=== PATIENT | male | born 1970 | race Caucasian/White ===

== ENCOUNTER 2018-11-19 18:19 | Emergency (ER) | payer MEDICARE, MEDICAID ==
[~2018-11-19] VITALS: Ht 182.9 cm; Wt 170.0 kg
[2018-11-19] MEDS ORDERED: LORAZEPAM 1MG TABLET PO ONE (20:00)
[2018-11-19] MEDS ORDERED: OLANZAPINE 5MG TABLET ODT PO ONE (20:00)
[2018-11-19 20:15] LABS: BASOPHILS % 0.5 % (0.0-2.0); EOSINOPHILS % 2.4 % (0.0-5.0); HEMOGLOBIN. 15.2 g/dL (14.0-18.0); LYMPHOCYTES % 23.3 % (20.0-50.0); MEAN CORPUSCULAR VOLUME 91.9 fL (80.0-94.0); MEAN PLATELET VOLUME 9.1 fl (7.4-10.4); MONOCYTES % 7.1 % (2.0-8.0); NEUTROPHILS % 66.7 % (40.0-76.0); PLATELET 172 x1000/uL (130-400); RED CELL DISTRIBUTION WIDTH 14.8 % (11.6-14.6)
[2018-11-19 20:16] LABS: CHLORIDE 112 mEq/L (98-107)
[2018-11-19 20:19] LABS: *BARBITURATES SCREEN URINE NEGATIVE (NEGATIVE)
[2018-11-19 20:20] LABS: *AMPHETAMINES SCREEN URINE NEGATIVE (NEGATIVE); *BENZODIAZEPINES SCREEN URINE NEGATIVE (NEGATIVE); *COCAINE SCREEN URINE NEGATIVE (NEGATIVE); CANNABINOID URINE SCREEN NEGATIVE (NEGATIVE); METHADONE URINE SCREEN NEGATIVE (NEGATIVE); OPIATES URINE SCREEN NEGATIVE (NEGATIVE); PHENCYCLIDINE URINE SCREEN NEGATIVE (NEGATIVE)
[2018-11-19 20:20] LABS: ETHANOL BLOOD < 10 mg/dL
[2018-11-21 11:06] VITALS: BP 160/78
== END 2018-11-21 11:10 | disposition home or self-care (01) ==
LOC: ER 18:19
DX: F23 Brief psychotic disorder (principal); R45.851 Suicidal ideations; Z75.1 Person awaiting admission to adequate facility elsewhere
CPT/HCPCS: 36415; 80048; 80305; 80307; 80320; 80329; 99284; G0480